=== PATIENT | male | born 1970 | race Two or more races ===

== ENCOUNTER 2020-04-08 02:17 | Inpatient (IN) | payer OTHER ==
[~2020-04-08] VITALS: Ht 172.7 cm; Wt 91.3 kg
[2020-04-08 03:30] LABS: Basophils # (auto) 0 10 ^3/uL (0-0.2); Basophils % (auto) 0.7 % (0.0-2.0); Eosinophils # (auto) 0 10 ^3/uL (0-0.8); Hematocrit 44.6 % (41.0-53.0); Hemoglobin 15.3 g/dL (13.5-17.5); Lymphocytes # (auto) 1.1 10 ^3/uL (0.4-5.4); Lymphocytes % (auto) 16.1 % (10.0-50.0); Mean Corpuscular Hemoglobin 29.2 pg (28.0-32.0); Mean Corpuscular Hgb Conc. 34.3 g/dL (32.0-36.0); Mean Corpuscular Volume 85.1 fL (80.0-100.0); Monocytes # (auto) 0.9 10 ^3/uL (0-1.3); Monocytes % (auto) 14.1 % (0.0-12.0); Neutrophils # (auto) 4.6 10 ^3/uL (1.6-8.6); Neutrophils % (auto) 69.1 % (37.0-80.0); Nucleated Red Blood Cells % 0.1 %; Platelet Count (auto) 153 10^3/uL (140-450); Red Blood Cells 5.25 10^6/uL (4.5-5.90); Red Cell Distribution Width 13.3 % (11.8-14.3); White Blood Cell 6.6 10^3/uL (4.4-10.8)
[2020-04-08 03:44] LABS: INR 1.02 (0.9-1.15); Partial Thromboplastin Time 30.5 sec (23.0-31.2)
[2020-04-08 03:47] LABS: Albumin 3.8 g/dL (3.4-5.0); BUN/Creatinine Ratio 15.4; Calcium 8.4 mg/dL (8.5-10.1); Potassium 3.6 mmol/L (3.5-5.1)
[2020-04-08 03:57] LABS: Bilirubin, Total 0.5 mg/dL (0.2-1.0); Total Protein 7.8 g/dL (6.4-8.2)
[2020-04-08] MEDS ORDERED: DexAMETHasone SOD PHOS 10MG/1ML VIAL INJ IV ONE (06:00)
[2020-04-08] MEDS ORDERED: DOXYCYCLINE 100MG/250ML 250 ML IV ONE (06:00)
[2020-04-08] MEDS ORDERED: TEMAZEPAM 15 MG CAP PO PRN (07:00)
[2020-04-08] MEDS ORDERED: ONDANSETRON HCL 4 MG/2 ML VIAL IV PRN (07:00)
[2020-04-08] MEDS ORDERED: LORazepam 0.5 MG TAB PO PRN (07:00)
[2020-04-08] MEDS ORDERED: ACETAMINOPHEN 500 MG TAB PO PRN (07:00)
[2020-04-08] MEDS ORDERED: ACETAMINOPHEN 325 MG TAB PO PRN (07:00)
[2020-04-08] MEDS ORDERED: DOCUSATE SOD 100 MG CAP PO PRN (07:00)
[2020-04-08] MEDS: DOXYCYCLINE 100 MG TAB/CAP PO SCH ×2 (09:04→21:33)
[2020-04-08] MEDS: SODIUM CHLORIDE 0.9% 1,000 ML IV SCH ×2 (09:52→23:52)
[2020-04-08] MEDS: ZINC SULFATE 220mg CAP or TAB PO SCH (09:53)
[2020-04-08] MEDS: ASCORBIC ACID 1,000 MG TAB PO SCH (09:53)
[2020-04-08] MEDS: ENOXAPARIN SOD 40 MG/0.4 ML SYRINGE SC SCH (09:54)
[2020-04-08] MEDS ORDERED: DexAMETHasone SOD PHOS 10MG/1ML VIAL INJ IV SCH (10:00)
[2020-04-08 13:21] VITALS: BP 108/70
[2020-04-08] MEDS: HYDROcodone-ACET 5/325MG TAB PO PRN ×4 (13:29→21:56)
[2020-04-08 14:02] LABS: Urine Bacteria NONE SEEN /hpf (None Seen); Urine Blood Negative /uL (Negative); Urine Mucus FEW (None Seen); Urine Specific Gravity 1.014 (1.001-1.035); Urine WBC 1 /hpf (0 - 3)
[2020-04-08] MEDS: ALBUTEROL SULF HFA 90MCG INH 200DOSE IN SCH ×2 (14:10→21:15)
[2020-04-08 14:12] LABS: Alcohol, Urine < 3.0 mg/dL (0-10); Amphetamine Screen, Urine NEGATIVE (NEGATIVE); Barbiturate Scree,Urine NEGATIVE (NEGATIVE); Benzodiazephine Screen, Urine NEGATIVE (NEGATIVE); Cannabinoid Screen, Urine NEGATIVE (NEGATIVE); Cocaine Screen, Urine NEGATIVE (NEGATIVE); Opiate Scree,Urine NEGATIVE (NEGATIVE); Phencyclidine Screen, Urine NEGATIVE (NEGATIVE)
--- NOTE | 2020-04-08 15:05 | NUR ---
Telemetry admit from ER KRISTEL ACOSTA admitted to Telemetry unit after SBAR received. Patient oriented to AL AUGUST, primary RN, unit, room, bed, and unit policies regarding patient care and visiting hours. Patient now on continuous telemetry monitoring, tele box # 13 and telemetry reading on arrival to unit is SR. Patient weighed by bedscale and encouraged to call if they need something. All questions and concerns addressed, patient verbalized understanding. Guard posted outside room.
[2020-04-08 17:21] VITALS: BP 132/84
--- NOTE | 2020-04-08 19:15 | NUR ---
OPENING SHIFT NOTE: Assumed care of patient. Patient is awake, alert, and oriented x 4. Patient is on RA with O2 saturations 98%. No s/s of respiratory distress, nausea, or vomiting. Respirations are regular and non-labored. Patient reports headache 4 out of 10 that is getting worse. will be addressed per Dr's order. Bed in lowest locked position with two side rails raised, call avery within reach. POC discussed with the patient. Instructed to call for assistance as needed. Will continue to monitor Q1 hr and PRN. Addendum: 04/08/20 at 2318 by GRECIA ORDONEZ RN RN Guard at the bed side.
[2020-04-08 20:00] VITALS: BP 142/93
[2020-04-08 20:54] LABS: CRP High Sensitivity 4.06 mg/dL (< 0.3)
[2020-04-08 22:00] VITALS: BP 142/93
[2020-04-09 05:00] VITALS: BP 125/69
[2020-04-09] MEDS: ALBUTEROL SULF HFA 90MCG INH 200DOSE IN SCH ×2 (06:14→14:28)
[2020-04-09 06:43] LABS: Basophils # (auto) 0 10 ^3/uL (0-0.2); Basophils % (auto) 0.1 % (0.0-2.0); Eosinophils # (auto) 0 10 ^3/uL (0-0.8); Hematocrit 44.2 % (41.0-53.0); Lymphocytes % (auto) 14.1 % (10.0-50.0); Mean Corpuscular Hemoglobin 29.2 pg (28.0-32.0); Monocytes # (auto) 0.9 10 ^3/uL (0-1.3); Monocytes % (auto) 13.2 % (0.0-12.0); Neutrophils # (auto) 5.1 10 ^3/uL (1.6-8.6); Neutrophils % (auto) 72.6 % (37.0-80.0); Platelet Count (auto) 162 10^3/uL (140-450); Red Blood Cells 5.14 10^6/uL (4.5-5.90); Red Cell Distribution Width 13.2 % (11.8-14.3)
[2020-04-09 07:22] LABS: Albumin 3.2 g/dL (3.4-5.0); Calcium 8.1 mg/dL (8.5-10.1); Potassium 4.2 mmol/L (3.5-5.1)
[2020-04-09 07:27] LABS: BUN/Creatinine Ratio 19.3; Bilirubin, Total 0.3 mg/dL (0.2-1.0); Total Protein 6.9 g/dL (6.4-8.2)
--- NOTE | 2020-04-09 08:09 | NUR ---
OPENING SHIFT NOTE Resumed care of patient. Patient is awake, and alert and oriented. No s/s of SOB or distress. Bed in lowest and locked position with side rails raised x2. Call avery within reach. Guard is rounding in hallway. Instructed on POC and encouraged to call for assistance, all questions and concerns addressed, patient verbalizes understanding. Will continue to monitor Q1 hr and PRN.
[2020-04-09 09:58] VITALS: BP 104/65
[2020-04-09] MEDS: ASCORBIC ACID 1,000 MG TAB PO SCH (10:03)
[2020-04-09] MEDS: DOXYCYCLINE 100 MG TAB/CAP PO SCH (10:03)
[2020-04-09] MEDS: ENOXAPARIN SOD 40 MG/0.4 ML SYRINGE SC SCH (10:03)
[2020-04-09] MEDS: ZINC SULFATE 220mg CAP or TAB PO SCH (10:03)
[2020-04-09 13:00] VITALS: BP 122/72
[2020-04-09] MEDS: HYDROcodone-ACET 5/325MG TAB PO PRN (14:15)
[2020-04-09] MEDS: SODIUM CHLORIDE 0.9% 1,000 ML IV SCH (16:12)
[2020-04-09 17:00] VITALS: BP 123/73
--- NOTE | 2020-04-09 17:37 | NUR ---
PT DISCHARGED. LEFT WITH GUARD. NO SOB OR SIGNS OF DISTRESS AT THIS TIME.
== END 2020-04-09 18:33 | DRG 179 ==
LOC: EEVIPCON 02:17 → ER 02:17 → EDBD 02:17 → TELE 02:18 → TELE-EAST 15:11
PROVIDERS: ADMIT Hospitalist; ATTEND Hospitalist
DX: U07.1 COVID-19 (principal); K21.9 Gastro-esophageal reflux disease without esophagitis; F41.9 Anxiety disorder, unspecified; I10 Essential (primary) hypertension; R73.9 Hyperglycemia, unspecified; E66.9 Obesity, unspecified; Z68.25 Body mass index [BMI] 25.0-25.9, adult
CPT/HCPCS: 36415; 71045; 80053; 80307; 81001; 82728; 83036; 83615; 83735; 83880; 84443; 85025; 85379; 85610; 85730; 86141; 87040; 87070; 87804; 87880; 94640; 96361; 96365; 96366; 96375; 96376; G0378; J1100; J2405; J3490

== ENCOUNTER 2020-04-13 02:17 | Inpatient (IN) | payer OTHER ==
[~2020-04-13] VITALS: Ht 175.3 cm; Wt 84.5 kg
[2020-04-13] MEDS ORDERED: DOXYCYCLINE 100MG/250ML 250 ML IV ONE (03:00)
[2020-04-13] MEDS ORDERED: DexAMETHasone SOD PHOS 10MG/1ML VIAL INJ IV ONE (03:00)
[2020-04-13] MEDS ORDERED: SODIUM CHLORIDE 0.9% 1,000 ML IV ONE (03:00)
[2020-04-13 03:12] LABS: Basophils # (auto) 0 10 ^3/uL (0-0.2); Basophils % (auto) 0.2 % (0.0-2.0); Eosinophils # (auto) 0 10 ^3/uL (0-0.8); Eosinophils % (auto) 0.1 % (0.0-7.0); Hematocrit 46.3 % (41.0-53.0); Lymphocytes # (auto) 0.4 10 ^3/uL (0.4-5.4); Lymphocytes % (auto) 7.3 % (10.0-50.0); Mean Corpuscular Hemoglobin 29.2 pg (28.0-32.0); Mean Corpuscular Hgb Conc. 34.6 g/dL (32.0-36.0); Mean Corpuscular Volume 84.5 fL (80.0-100.0); Monocytes # (auto) 0.6 10 ^3/uL (0-1.3); Monocytes % (auto) 10.3 % (0.0-12.0); Neutrophils # (auto) 4.7 10 ^3/uL (1.6-8.6); Neutrophils % (auto) 82.1 % (37.0-80.0); Platelet Count (auto) 235 10^3/uL (140-450); Red Blood Cells 5.47 10^6/uL (4.5-5.90); Red Cell Distribution Width 13.2 % (11.8-14.3); White Blood Cell 5.7 10^3/uL (4.4-10.8)
[2020-04-13 03:24] LABS: INR 1.05 (0.9-1.15); Partial Thromboplastin Time 31.2 sec (23.0-31.2)
[2020-04-13 03:29] LABS: Albumin 3.1 g/dL (3.4-5.0); Anion Gap 4 (5-15); Blood Urea Nitrogen 18 mg/dL (7-18); Calcium 8.1 mg/dL (8.5-10.1); Carbon Dioxide 29 mmol/L (21-32); Chloride 98 mmol/L (98-107); Glucose 145 mg/dL (74-106); Potassium 4.1 mmol/L (3.5-5.1); Sodium 131 mmol/L (136-145)
[2020-04-13 03:38] LABS: Alanine Aminotransferase 53 U/L (16-61); Alkaline Phosphatase 66 U/L (45-117); Aspartate Aminotransferase 57 U/L (15-37); BUN/Creatinine Ratio 14.3; Bilirubin, Total 0.6 mg/dL (0.2-1.0); GFR African American 79 mL/min; GFR Non-African American 65 mL/min; Total Protein 7.9 g/dL (6.4-8.2)
[2020-04-13] MEDS ORDERED: ONDANSETRON HCL 4 MG/2 ML VIAL IV PRN (07:15)
[2020-04-13] MEDS ORDERED: NITROGLYCERIN 0.4 MG SL TAB SL PRN (07:15)
[2020-04-13] MEDS ORDERED: MORPHINE SULF INJ 2 MG/ML SYRINGE 1ML IV PRN (07:15)
[2020-04-13 08:19] LABS: Magnesium 2.8 mg/dL (1.6-2.6)
[2020-04-13 08:29] LABS: CRP High Sensitivity 14.6 mg/dL (< 0.3)
[2020-04-13 08:47] LABS: Urine Bacteria FEW /hpf (None Seen); Urine Blood Negative /uL (Negative); Urine Specific Gravity 1.012 (1.001-1.035); Urine WBC 1 /hpf (0 - 3)
[2020-04-13 09:00] VITALS: BP 131/91
--- NOTE | 2020-04-13 09:43 | NUR ---
Telemetry admit from ER KRISTEL ACOSTA admitted to Telemetry unit after SBAR received Fidelia STORY. Patient oriented to Tamar Jaimes RN primary RN, unit, room, bed, and unit policies regarding patient care and visiting hours. Patient now on continuous telemetry monitoring, tele box #5 and telemetry reading on arrival to unit is Sinus Rhythm 73 bpm. Patient placed on bedside oxygen, weighed by bed scale and encouraged to call if they need something. All questions and concerns addressed, patient verbalized understanding.
[2020-04-13] MEDS ORDERED: ENOXAPARIN SOD 40 MG/0.4 ML SYRINGE SC SCH (10:00)
[2020-04-13] MEDS: ZINC SULFATE 220mg CAP or TAB PO SCH (10:40)
[2020-04-13] MEDS: ENOXAPARIN SOD 40 MG/0.4 ML SYRINGE SC SCH (10:40)
[2020-04-13] MEDS: DOXYCYCLINE 100MG/250ML 250 ML IV SCH ×2 (10:40→21:38)
[2020-04-13] MEDS: FAMOTIDINE 20 MG TAB PO SCH ×2 (10:40→21:38)
[2020-04-13] MEDS: CHOLECALCIFEROL (VITD3) 2,000 UNIT CAP PO SCH (10:41)
[2020-04-13] MEDS: DexAMETHasone SOD PHOS 10MG/1ML VIAL INJ IV SCH (10:41)
[2020-04-13] MEDS: ASCORBIC ACID 1,000 MG TAB PO SCH (10:41)
--- NOTE | 2020-04-13 11:25 | NUR ---
SPOKE WITH DR. AMADOR INFORMED PATIENT DOES NOT HAVE A DIET AND WAS NOT SWAB FOR COVID, BUT WAS POSITIVE ON LAST ADMISSION. ORDERED REGULAR DIET, COVID SWAB, PLASMA, AND REMDESIVIR. PER MD AMADOR SHE WILL SPEAK WITH PATIENT SOON FOR INFORMED CONSENT.
--- NOTE | 2020-04-13 11:35 | NUR ---
NAFSIA AMADOR FOR DIET ORDER AND COVID SWAB. AWAITING CALL BACK
[2020-04-13 12:00] VITALS: BP 130/87
[2020-04-13 13:52] VITALS: BP 120/76
--- NOTE | 2020-04-13 13:58 | NUR ---
CLOSING SHIFT NOTE ENDORSE CARE TO RELIEF PORSHA ROSARIO. PATIENT HAS NO S/S OF DISTRESS/SOB OR PAIN AT THIS TIME.
[2020-04-13] MEDS ORDERED: guaiFENesin-DM 100/10mg/5ml SYR PO PRN (14:30)
[2020-04-13] MEDS: ALBUTEROL SULF HFA 90MCG INH 200DOSE IN SCH ×2 (14:50→22:21)
[2020-04-13 17:00] VITALS: BP 145/90
[2020-04-13] MEDS ORDERED: REMDESIVIR 200 MG in NS 210ml LOADING DOSE ADULT IV ONE (17:00)
--- NOTE | 2020-04-13 19:10 | NUR ---
Opening Shift Note Received report from radha Rossi RN. Assumed care of patient, awake and alert. No S/S of distress/SOB or pain. Instructed on POC and to call for assist PRN, will continue to monitor for changes Q1hr and PRN.
[2020-04-13 20:00] VITALS: BP 146/93
[2020-04-13] MEDS: ACETAMINOPHEN 325 MG TAB PO PRN (21:38)
--- NOTE | 2020-04-13 21:38 | NUR ---
Given tylenol for headache of 3/10. will monitor
[2020-04-13 22:01] VITALS: BP 146/93
[2020-04-14] VITALS (7 sets, daily range): BP systolic 128–135; BP diastolic 75–98
--- NOTE | 2020-04-14 05:21 | NUR ---
Patient is resting in bed with eyes closed, no distress noted and patient denies pain. Patient is saturating at 94% on 4LNC.
[2020-04-14] MEDS: ALBUTEROL SULF HFA 90MCG INH 200DOSE IN SCH ×3 (06:53→21:19)
--- NOTE | 2020-04-14 07:00 | NUR ---
OPENING SHIFT NOTE ASSUMED CARE OF PATIENT FROM SHADE CLOTH FINISHER RN TAE. PATIENT IS AWAKE, ALERT, AND ORIENTED X4. PATIENT HAS NO S/S OF DISTRESS/SOB OR PAIN. INSTRUCTED PATIENT ON POC, PATIENT VERBALIZED UNDERSTANDING. BED IS IN LOWEST POSITION WITH SIDE RAILS RAISED X2, BED WHEELS LOCKED, AND CALL LIGHT IS WITHIN REACH. WILL CONTINUE TO MONITOR.
[2020-04-14 07:23] LABS: Basophils # (auto) 0 10 ^3/uL (0-0.2); Basophils % (auto) 0.1 % (0.0-2.0); Eosinophils # (auto) 0 10 ^3/uL (0-0.8); Hematocrit 44.6 % (41.0-53.0); Hemoglobin 14.7 g/dL (13.5-17.5); Lymphocytes # (auto) 0.8 10 ^3/uL (0.4-5.4); Lymphocytes % (auto) 9.6 % (10.0-50.0); Mean Corpuscular Hemoglobin 28.4 pg (28.0-32.0); Mean Corpuscular Volume 86.2 fL (80.0-100.0); Monocytes # (auto) 0.8 10 ^3/uL (0-1.3); Monocytes % (auto) 9.2 % (0.0-12.0); Neutrophils # (auto) 6.6 10 ^3/uL (1.6-8.6); Neutrophils % (auto) 81.1 % (37.0-80.0); Nucleated Red Blood Cells % 0.1 %; Platelet Count (auto) 261 10^3/uL (140-450); Red Blood Cells 5.18 10^6/uL (4.5-5.90); Red Cell Distribution Width 13.2 % (11.8-14.3); White Blood Cell 8.2 10^3/uL (4.4-10.8)
[2020-04-14 07:51] LABS: Albumin 2.5 g/dL (3.4-5.0); BUN/Creatinine Ratio 24.1; Calcium 8.3 mg/dL (8.5-10.1); Potassium 4.6 mmol/L (3.5-5.1)
[2020-04-14 08:04] LABS: Bilirubin, Total 0.4 mg/dL (0.2-1.0); Total Protein 7.1 g/dL (6.4-8.2)
[2020-04-14] MEDS: DOXYCYCLINE 100MG/250ML 250 ML IV SCH ×2 (10:22→21:46)
[2020-04-14] MEDS: ZINC SULFATE 220mg CAP or TAB PO SCH (10:23)
[2020-04-14] MEDS: ASCORBIC ACID 1,000 MG TAB PO SCH (10:24)
[2020-04-14] MEDS: FAMOTIDINE 20 MG TAB PO SCH ×2 (10:24→21:46)
[2020-04-14] MEDS: CHOLECALCIFEROL (VITD3) 2,000 UNIT CAP PO SCH (10:24)
[2020-04-14] MEDS: ENOXAPARIN SOD 40 MG/0.4 ML SYRINGE SC SCH (10:25)
[2020-04-14] MEDS: DexAMETHasone SOD PHOS 10MG/1ML VIAL INJ IV SCH (10:25)
--- NOTE | 2020-04-14 16:58 | NUR ---
PRE ADMINISTRATION VITALS OF REMDESIVIR 135/91 mmHg AND HR 89 BPM.
[2020-04-14] MEDS: REMDESIVIR 100mg in NS 230ml DAILYx4DAYS (NO VENT) IV SCH (17:03)
--- NOTE | 2020-04-14 17:18 | NUR ---
REMDESIVIR 15 MINUTE VITAL SIGNS 134/86 mmHg HR 82 bpm
--- NOTE | 2020-04-14 18:58 | NUR ---
POST REMDESIVIR VITALS BP 134/97mmHg, HR 90 BPM.
--- NOTE | 2020-04-14 19:01 | NUR ---
CLOSING SHIFT NOTE PATIENT HAS NO S/S OF DISTRESS/SOB OR PAIN AT THIS TIME. WILL ENDORSE CARE TO CRUISE GUIDE RN.
--- NOTE | 2020-04-14 19:30 | NUR ---
OPENING SHIFT NOTE Assumed care of patient who is A&O x4. Currently on 3L NC; spo2 is 95%. with c/o Dry cough noted and patient reports SOB on exertion. Breathe sounds are diminished throughout. Patient denies pain at this time. PIV in left AC is intact and patent. Flushed with 10ml NS. Patient is ambulatory without the use of assistive devices at baseline. POC discussed and patient verbalizes understanding. Patient is restrained to bed at left wrist and bilateral ankles. information management officer present outside of room for safety. Bed is in low locked position with side rails up x2. Call light is within reach and patient encouraged to call for assistance when needed. Will continue to monitor for changes PRN.
--- NOTE | 2020-04-14 21:08 | NUR ---
Patient provided 50ft nasal cannula due to SOB with exertion and desaturation when ambulating to the restroom. Patient instructed to call for assistance when needing to get OOB. Verbalizes understanding.
[2020-04-15] VITALS (8 sets, daily range): BP systolic 126–145; BP diastolic 82–102
[2020-04-15] MEDS: ALBUTEROL SULF HFA 90MCG INH 200DOSE IN SCH ×3 (06:46→22:27)
--- NOTE | 2020-04-15 07:05 | NUR ---
OPENING SHIFT NOTE ASSUMED CARE OF PATIENT FROM PHOTO MACHINE OPERATOR RN NARESH. PATIENT IS AWAKE, ALERT, AND ORIENTED X4. PATIENT HAS NO S/S OF DISTRESS/SOB OR PAIN. INSTRUCTED PATIENT ON POC, PATIENT VERBALIZED UNDERSTANDING. BED IS IN LOWEST POSITION WITH SIDE RAILS RAISED X2, HANDCUFFS APPLIED TO BILATERAL WRISTS AND TO RIGHT ANKLE, GUARD OUTSIDE OF ROOM, BED WHEELS LOCKED, AND CALL LIGHT IS WITHIN REACH. WILL CONTINUE TO MONITOR.
[2020-04-15] MEDS: ASCORBIC ACID 1,000 MG TAB PO SCH (10:17)
[2020-04-15] MEDS: DOXYCYCLINE 100MG/250ML 250 ML IV SCH ×2 (10:17→22:00)
[2020-04-15] MEDS: ENOXAPARIN SOD 40 MG/0.4 ML SYRINGE SC SCH (10:18)
[2020-04-15] MEDS: FAMOTIDINE 20 MG TAB PO SCH ×2 (10:18→22:39)
[2020-04-15] MEDS: DexAMETHasone SOD PHOS 10MG/1ML VIAL INJ IV SCH (10:19)
[2020-04-15] MEDS: ZINC SULFATE 220mg CAP or TAB PO SCH (10:19)
[2020-04-15] MEDS: CHOLECALCIFEROL (VITD3) 2,000 UNIT CAP PO SCH (10:19)
[2020-04-15] MEDS: FUROSEMIDE 40 MG TAB PO SCH (10:26)
--- NOTE | 2020-04-15 17:46 | NUR ---
PRE REMDESIVIR VITALS BP 142/98 mmHg AND HEART RAT 82 BPM. WILL CONTINUE TO MONITOR.
[2020-04-15] MEDS: REMDESIVIR 100mg in NS 230ml DAILYx4DAYS (NO VENT) IV SCH (17:50)
--- NOTE | 2020-04-15 18:05 | NUR ---
15 MINUTE VITALS FOR REMDESIVIR INFUSION BP 134/88 mmHg AND HR IS 89 BPM
--- NOTE | 2020-04-15 18:50 | NUR ---
CLOSING SHIFT NOTE PATIENT HAS NO S/S OF DISTRESS/SOB OR PAIN AT THIS TIME. WILL ENDORSE CARE TO GEOSPATIAL TECHNICIAN RN.
--- NOTE | 2020-04-15 20:31 | NUR ---
POST REMDESIVIR VITALS BP: 135/86 HR: 81
--- NOTE | 2020-04-15 22:56 | NUR ---
[facility] pre transfusion vitals: Temp: 98.4 P: 83 RR: 22 BP: 145/90 Spo2: 91% on 2L NC Verified by two RNs and transfusion started. Addendum: 04/15/20 at 2302 by VANESA NAVARRETE RN RN Correct time should be 2206
--- NOTE | 2020-04-15 23:09 | NUR ---
TRANSFUSION COMPLETE Patient denies any adverse effects. V/S obtained. See Transfusion documentation.
[2020-04-16] VITALS (8 sets, daily range): BP systolic 125–139; BP diastolic 76–89
--- NOTE | 2020-04-16 00:07 | NUR ---
POST TRANSFUSION VITALS Temp: 98.6, HR: 74, RR: 20, BP: 134/85 Spo2: 94% on 3L
[2020-04-16 05:44] LABS: Basophils # (auto) 0 10 ^3/uL (0-0.2); Basophils % (auto) 0.2 % (0.0-2.0); Eosinophils # (auto) 0 10 ^3/uL (0-0.8); Hematocrit 41.7 % (41.0-53.0); Hemoglobin 14.3 g/dL (13.5-17.5); Lymphocytes % (auto) 14.2 % (10.0-50.0); Mean Corpuscular Hemoglobin 29.3 pg (28.0-32.0); Mean Corpuscular Hgb Conc. 34.2 g/dL (32.0-36.0); Mean Corpuscular Volume 85.5 fL (80.0-100.0); Monocytes # (auto) 0.7 10 ^3/uL (0-1.3); Monocytes % (auto) 9.3 % (0.0-12.0); Neutrophils # (auto) 5.6 10 ^3/uL (1.6-8.6); Neutrophils % (auto) 76.3 % (37.0-80.0); Platelet Count (auto) 360 10^3/uL (140-450); Red Blood Cells 4.88 10^6/uL (4.5-5.90); Red Cell Distribution Width 13.1 % (11.8-14.3); White Blood Cell 7.3 10^3/uL (4.4-10.8)
[2020-04-16] MEDS: ALBUTEROL SULF HFA 90MCG INH 200DOSE IN SCH ×3 (06:23→22:41)
[2020-04-16 06:25] LABS: Albumin 2.7 g/dL (3.4-5.0); Calcium 8.5 mg/dL (8.5-10.1)
[2020-04-16 06:27] LABS: BUN/Creatinine Ratio 28.8
[2020-04-16 06:29] LABS: Bilirubin, Total 0.4 mg/dL (0.2-1.0); Total Protein 6.8 g/dL (6.4-8.2)
--- NOTE | 2020-04-16 07:20 | NUR ---
OPENING SHIFT NOTE ASSUMED CARE OF PATIENT FROM MANAGER CRISIS RN NARESH. PATIENT IS AWAKE, ALERT, AND ORIENTED X4. PATIENT HAS NO S/S OF DISTRESS/SOB OR PAIN. INSTRUCTED PATIENT ON POC, PATIENT VERBALIZED UNDERSTANDING. BED IS IN LOWEST POSITION WITH SIDE RAILS RAISED X2, HANDCUFFS APPLIED TO BILATERAL WRISTS AND TO RIGHT ANKLE, GUARD OUTSIDE OF ROOM, BED WHEELS LOCKED, AND CALL LIGHT IS WITHIN REACH. WILL CONTINUE TO MONITOR.
[2020-04-16] MEDS: FAMOTIDINE 20 MG TAB PO SCH ×2 (10:10→21:22)
[2020-04-16] MEDS: CHOLECALCIFEROL (VITD3) 2,000 UNIT CAP PO SCH (10:10)
[2020-04-16] MEDS: ZINC SULFATE 220mg CAP or TAB PO SCH (10:10)
[2020-04-16] MEDS: ASCORBIC ACID 1,000 MG TAB PO SCH (10:10)
[2020-04-16] MEDS: ENOXAPARIN SOD 40 MG/0.4 ML SYRINGE SC SCH (10:11)
[2020-04-16] MEDS: DexAMETHasone SOD PHOS 10MG/1ML VIAL INJ IV SCH (10:11)
[2020-04-16] MEDS: DOXYCYCLINE 100MG/250ML 250 ML IV SCH ×2 (10:11→21:22)
[2020-04-16] MEDS: FUROSEMIDE 40 MG TAB PO SCH (10:11)
--- NOTE | 2020-04-16 11:23 | NUR ---
Nutrition Assessment Notes Please refer to link for full assessment notes. Est Energy needs: 6464-0258 kcals (23-25 kcal/kgBW) Est Protein needs: 69-86 gms/day (0.8-1.0 gm/kgBW) Will continue to monitor and reassess prn. Addendum: 04/16/20 at [address] Amended: Links added.
[2020-04-16] MEDS: REMDESIVIR 100mg in NS 230ml DAILYx4DAYS (NO VENT) IV SCH (17:04)
--- NOTE | 2020-04-16 17:04 | NUR ---
PRE REMDESIVIR VITALS BP 144/82 mmHg AND HR 88 BPM. WILL CONTINUE TO MONITOR.
--- NOTE | 2020-04-16 17:19 | NUR ---
15 MINUTE INFUSION REMDESIVIR VITALS BP 146/75 mmHg AND HEART IS 77 BPM. WILL CONTINUE TO MONITOR.
--- NOTE | 2020-04-16 18:23 | NUR ---
POST REMDISIVIR VITALS 142/91 mmHg, HR IS 84 BPM.
--- NOTE | 2020-04-16 19:04 | NUR ---
CLOSING SHIFT NOTE PATIENT HAS NO S/S OF DISTRESS/SOB OR PAIN. ENDORSED CARE TO AUTOMATIC MOUNTER PORSHA INFANTE.
--- NOTE | 2020-04-16 19:20 | NUR ---
OPENING SHIFT NOTE Assumed care of patient who is A&O x4. Currently on 4L NC. Reports SOB on exertion and dry cough with deep inhalation. denies pain at this time. PIV in right forearm is intact and patent. Flushed with 10ml NS. POC discussed and patient verbalizes understanding. Bed is in low locked position with side rails up x2. Left wrist is handcuffed to bed. [facility] deputy outside of room for security. call light is within reach and patient encouraged to call for assistance when needed. Will continue to monitor for changes PRN.
--- NOTE | 2020-04-16 22:00 | NUR ---
Patient ambulated to the restroom on 4L NC. Pulled assistance cord due to SOB and inability to ambulate back to bed independently. Upon entering the restroom, patient is coughing extensively and respirations are labored. Instructed patient to sit back down onto toilet and take deep slow breaths through his nose. O2 increased to 6LPM and patient instructed to remain seated until he recovered. Once patient's breathing returned to normal and coughing ceased, he was assisted by this RN and [facility]'s deputy back into bed. patient handcuffed to bed at left wrist. Will continue to monitor.
[2020-04-16] MEDS: ACETAMINOPHEN 325 MG TAB PO PRN (22:44)
--- NOTE | 2020-04-16 22:45 | NUR ---
Patient educated on self proning. [place] ensured shackles are long enough for patient to turn in bed. Patient declines to lie prone at this time, however verbalizes understanding of the importance to enhance oxygenation and move secretions. Will continue to encouraged patient to lay prone as tolerated.
--- NOTE | 2020-04-16 22:46 | NUR ---
O2 reduced back to 4LPM now that patient is resting comfortably in bed and respirations are even and non labored. Vital signs obtained. Spo2 on 4L is 93%. Patient reports mild headache and requests cough syrup. Will medicate with Acetaminophen 650mg and Guaifenesin 20mg as ordered. Will continue to monitor for changes PRN.
[2020-04-17 05:00] VITALS: BP 121/73
[2020-04-17] MEDS: ALBUTEROL SULF HFA 90MCG INH 200DOSE IN SCH ×3 (06:32→21:53)
--- NOTE | 2020-04-17 07:10 | NUR ---
OPENING SHIFT NOTE ASSUMED CARE OF PATIENT FROM PREVOCATIONAL/REHABILITATION COUNSELOR RN NARESH. PATIENT IS AWAKE, ALERT, AND ORIENTED X4. PATIENT HAS NO S/S OF DISTRESS/SOB OR PAIN. INSTRUCTED PATIENT ON POC, PATIENT VERBALIZED UNDERSTANDING. BED IS IN LOWEST POSITION WITH SIDE RAILS RAISED X2, HANDCUFFS APPLIED TO BILATERAL WRISTS AND TO RIGHT ANKLE, GUARD OUTSIDE OF ROOM, BED WHEELS LOCKED, AND CALL LIGHT IS WITHIN REACH. WILL CONTINUE TO MONITOR.
[2020-04-17 07:38] LABS: Hematocrit 45.4 % (41.0-53.0); Mean Corpuscular Hemoglobin 28.4 pg (28.0-32.0); Mean Corpuscular Hgb Conc. 33.1 g/dL (32.0-36.0); Mean Corpuscular Volume 85.7 fL (80.0-100.0); Platelet Count (auto) 399 10^3/uL (140-450); Red Cell Distribution Width 13.1 % (11.8-14.3)
[2020-04-17 07:47] VITALS: BP 136/78
[2020-04-17 07:51] LABS: Basophils % (manual) 0 (0.0-2.0); Blast Cells 0; Eosinophils % (manual) 0 (0-7); Metamyelocytes % 0; Myelocytes % 0; Promyelocytes % 0; Reactive Lymphocytes 0
[2020-04-17 07:59] LABS: Albumin 2.8 g/dL (3.4-5.0); BUN/Creatinine Ratio 26.4; Bilirubin, Total 0.5 mg/dL (0.2-1.0); Calcium 8.4 mg/dL (8.5-10.1); Potassium 4.1 mmol/L (3.5-5.1); Total Protein 7.2 g/dL (6.4-8.2)
[2020-04-17 08:07] LABS: Band Neutrophils % (manual) 3; Lymphocytes % (manual) 17 (10.0-50.0); Monocytes % (manual) 8 (0-12)
[2020-04-17 09:00] VITALS: BP 136/78
[2020-04-17] MEDS: DexAMETHasone SOD PHOS 10MG/1ML VIAL INJ IV SCH (10:24)
[2020-04-17] MEDS: ENOXAPARIN SOD 40 MG/0.4 ML SYRINGE SC SCH (10:24)
[2020-04-17] MEDS: FAMOTIDINE 20 MG TAB PO SCH ×2 (10:25→21:53)
[2020-04-17] MEDS: ASCORBIC ACID 1,000 MG TAB PO SCH (10:25)
[2020-04-17] MEDS: CHOLECALCIFEROL (VITD3) 2,000 UNIT CAP PO SCH (10:25)
[2020-04-17] MEDS: DOXYCYCLINE 100MG/250ML 250 ML IV SCH ×2 (10:25→21:54)
[2020-04-17] MEDS: ZINC SULFATE 220mg CAP or TAB PO SCH (10:25)
[2020-04-17] MEDS: FUROSEMIDE 40 MG TAB PO SCH (10:25)
[2020-04-17] MEDS: ACETAMINOPHEN 325 MG TAB PO PRN ×2 (10:33→18:00)
[2020-04-17 13:00] VITALS: BP 140/83
[2020-04-17 16:57] VITALS: BP 128/81
--- NOTE | 2020-04-17 17:28 | NUR ---
PRE INFUSION VITALS FOR REMDESIVIR BP 121/94 mmHg AND HEART RATE 85 BPM
[2020-04-17] MEDS: REMDESIVIR 100mg in NS 230ml DAILYx4DAYS (NO VENT) IV SCH (17:29)
--- NOTE | 2020-04-17 17:45 | NUR ---
REMDESIVIR 15 MINUTE INFUSION VITALS BP 139/93 mmHg AND HEART RATE 79 BPM
--- NOTE | 2020-04-17 18:28 | NUR ---
POST REMDESIVIR VITALS BP136/85 mmHg AND HEART 95 BPM
--- NOTE | 2020-04-17 18:59 | NUR ---
CLOSING SHIFT NOTE ENDORSED CARE TO STIPPLER RN. PATIENT HAS NO S/S OF DISTRESS/SOB OR PAIN AT THIS TIME.
[2020-04-17] MEDS: TEMAZEPAM 15 MG CAP PO PRN (21:53)
[2020-04-17 21:59] VITALS: BP 121/84
[2020-04-18 05:00] VITALS: BP 126/86
--- NOTE | 2020-04-18 07:19 | NUR ---
CLOSING SHIFT NOTE ENDORSED CARE TO DAY SHIFT RN. PATIENT HAS NO S/S OF DISTRESS/SOB OR PAIN AT THIS TIME
[2020-04-18] MEDS: ALBUTEROL SULF HFA 90MCG INH 200DOSE IN SCH ×3 (08:09→22:17)
[2020-04-18 08:41] VITALS: BP 128/90
[2020-04-18] MEDS ORDERED: guaiFENesin-DM 100/10mg/5ml SYR PO PRN (10:00)
--- NOTE | 2020-04-18 10:02 | NUR ---
ON ROOM AIR FOR 10 MINUTES OXYGEN SATURATION TO 86% PLACED BACK ON 2 LITER SATURATION AT 92% PAGED DR AMADOR TO NOTIFY HER.
[2020-04-18] MEDS: DexAMETHasone SOD PHOS 10MG/1ML VIAL INJ IV SCH (12:06)
[2020-04-18] MEDS: ASCORBIC ACID 1,000 MG TAB PO SCH (12:07)
[2020-04-18] MEDS: ENOXAPARIN SOD 40 MG/0.4 ML SYRINGE SC SCH (12:07)
[2020-04-18] MEDS: CHOLECALCIFEROL (VITD3) 2,000 UNIT CAP PO SCH (12:07)
[2020-04-18] MEDS: FAMOTIDINE 20 MG TAB PO SCH ×2 (12:07→21:51)
[2020-04-18] MEDS: ZINC SULFATE 220mg CAP or TAB PO SCH (12:07)
[2020-04-18] MEDS: FUROSEMIDE 40 MG TAB PO SCH (12:09)
[2020-04-18 13:00] VITALS: BP 122/79
[2020-04-18 17:00] VITALS: BP 123/88
[2020-04-18] MEDS: TEMAZEPAM 15 MG CAP PO PRN (21:51)
[2020-04-18] MEDS: ACETAMINOPHEN 325 MG TAB PO PRN (21:52)
[2020-04-18 22:00] VITALS: BP 139/97
[2020-04-19 05:00] VITALS: BP 134/87
[2020-04-19] MEDS: ALBUTEROL SULF HFA 90MCG INH 200DOSE IN SCH ×3 (06:22→21:57)
--- NOTE | 2020-04-19 06:56 | NUR ---
CLOSING SHIFT NOTE WILL ENDORSED CARE TO DAY SHIFT RN. PATIENT HAS NO S/S OF DISTRESS/SOB OR PAIN AT THIS TIME
[2020-04-19 08:48] VITALS: BP 130/92
[2020-04-19] MEDS: DexAMETHasone SOD PHOS 10MG/1ML VIAL INJ IV SCH (10:26)
[2020-04-19] MEDS: ZINC SULFATE 220mg CAP or TAB PO SCH (10:27)
[2020-04-19] MEDS: ASCORBIC ACID 1,000 MG TAB PO SCH (10:27)
[2020-04-19] MEDS: FUROSEMIDE 40 MG TAB PO SCH ×2 (10:27→22:16)
[2020-04-19] MEDS: FAMOTIDINE 20 MG TAB PO SCH ×2 (10:27→22:14)
[2020-04-19] MEDS: ENOXAPARIN SOD 40 MG/0.4 ML SYRINGE SC SCH (10:30)
[2020-04-19] MEDS: CHOLECALCIFEROL (VITD3) 2,000 UNIT CAP PO SCH (10:30)
[2020-04-19 10:35] VITALS: BP 130/92
--- NOTE | 2020-04-19 11:25 | NUR ---
Nutrition Followup Notes Wt: 83.7 kg Pt is COVID positive. Pt is currently on regular diet with adequate PO of 100% x 4 per RN doc. pt with no distress noted Est Energy needs: 7975-8153 kcals (23-25 kcal/kgBW), Est Protein needs: 69-86 gms/day (0.8-1.0 gm/kgBW). Will continue to monitor and reassess prn. Labs: ALB 2.8 L, GLU 128 H CA 8.4 L, BUN 24 H BM: Pt had 1 BM yesterday per RN note. Skin: BS 21 low risk, full details in primary care provider note. PES: Altered nutrition related lab values current/chronic medical condition aeb hypokalemia, elev BUN hypocalcemia, mod hypoalb Comments: Will continue to monitor po intake, skin status, pertinent labs and weight trends. F/u high 3-5 days 1) Continue current plan of care
[2020-04-19 12:57] VITALS: BP 130/89
[2020-04-19 16:46] VITALS: BP 137/79
[2020-04-19 22:04] LABS: Urine WBC None Seen /hpf (0 - 3)
[2020-04-19] MEDS: POTASSIUM CHL 10 Meq TABLET PO SCH (22:15)
[2020-04-19] MEDS: TEMAZEPAM 15 MG CAP PO PRN (22:15)
[2020-04-19] MEDS: ACETAMINOPHEN 325 MG TAB PO PRN (22:15)
[2020-04-19 22:32] LABS: Urine Bacteria NONE SEEN /hpf (None Seen); Urine Blood Negative /uL (Negative); Urine Specific Gravity 1.027 (1.001-1.035)
[2020-04-19 22:50] VITALS: BP 148/91
[2020-04-20 05:26] VITALS: BP 130/89
[2020-04-20] MEDS: ALBUTEROL SULF HFA 90MCG INH 200DOSE IN SCH ×3 (06:16→21:19)
[2020-04-20 06:29] LABS: Albumin 2.9 g/dL (3.4-5.0); Calcium 8.5 mg/dL (8.5-10.1); Mean Corpuscular Hgb Conc. 33.9 g/dL (32.0-36.0); Mean Corpuscular Volume 85.4 fL (80.0-100.0); Potassium 3.9 mmol/L (3.5-5.1); Red Cell Distribution Width 13.1 % (11.8-14.3); White Blood Cell 8.4 10^3/uL (4.4-10.8)
[2020-04-20 06:30] LABS: Hemoglobin 15.6 g/dL (13.5-17.5); Platelet Count (auto) 547 10^3/uL (140-450); Red Blood Cells 5.39 10^6/uL (4.5-5.90)
[2020-04-20 06:31] LABS: Basophils % (manual) 0 (0.0-2.0); Blast Cells 0; Eosinophils % (manual) 0 (0-7); Metamyelocytes % 0; Myelocytes % 0; Promyelocytes % 0; Reactive Lymphocytes 0
[2020-04-20 06:34] LABS: BUN/Creatinine Ratio 29.9; Bilirubin, Total 0.4 mg/dL (0.2-1.0); Total Protein 7.2 g/dL (6.4-8.2)
--- NOTE | 2020-04-20 06:54 | NUR ---
CLOSING SHIFT NOTE WILL ENDORSED CARE TO DAY SHIFT RN. PATIENT HAS NO S/S OF DISTRESS/SOB OR PAIN AT THIS TIME
--- NOTE | 2020-04-20 07:20 | NUR ---
OPENING NOTE ASSUMED CARE OF PT. ALERT AND ORIENTED. NO S/S OF SOB/DISTRESS NOTED. BED SET TO LOWEST POSITION/LOCKED. BEDSIDE RAILS UP X2. CALL LIGHT WITHIN REACH. INSTRUCTED PT TO CALL FOR ASSISTANCE. UPDATED ON POC. PT VERBALIZED UNDERSTANDING. WILL CONTINUE TO MONITOR Q1HR AND PRN.
[2020-04-20 07:44] LABS: Band Neutrophils % (manual) 3; Lymphocytes % (manual) 14 (10.0-50.0); Monocytes % (manual) 7 (0-12)
[2020-04-20 09:00] VITALS: BP 123/87
[2020-04-20] MEDS: ZINC SULFATE 220mg CAP or TAB PO SCH (09:09)
[2020-04-20] MEDS: DexAMETHasone 4 MG TAB PO SCH (09:10)
[2020-04-20] MEDS: POTASSIUM CHL 10 Meq TABLET PO SCH (09:10)
[2020-04-20] MEDS: ASCORBIC ACID 1,000 MG TAB PO SCH (09:11)
[2020-04-20] MEDS: FAMOTIDINE 20 MG TAB PO SCH ×2 (09:11→23:02)
[2020-04-20] MEDS: CHOLECALCIFEROL (VITD3) 2,000 UNIT CAP PO SCH (09:11)
[2020-04-20] MEDS: FUROSEMIDE 40 MG TAB PO SCH (09:11)
[2020-04-20] MEDS: ENOXAPARIN SOD 40 MG/0.4 ML SYRINGE SC SCH (09:12)
[2020-04-20 13:00] VITALS: BP 129/79
[2020-04-20 16:52] VITALS: BP 131/93
--- NOTE | 2020-04-20 19:30 | NUR ---
opening note pt is watching tv. semi fowlers position with HOB at 30 degrees. respirations even and nonlabored on 2Lnc. POC discussed, pt verbalized understanding. pt is inmate. federal guard position outside of room. pt denies pain or discomfort at this time. bed in low locked position, call light within reach.
[2020-04-20 22:00] VITALS: BP 142/96
--- NOTE | 2020-04-20 22:30 | NUR ---
IV at right forearm leaking. IV discontinued at this time. catheter remained fully intact upon removal.
--- NOTE | 2020-04-20 22:35 | NUR ---
New IV placed at left forearm, 20g 1 attempt. pt tolerated insertion well.
[2020-04-20] MEDS: TEMAZEPAM 15 MG CAP PO PRN (23:02)
[2020-04-21 05:00] VITALS: BP 132/86
[2020-04-21] MEDS: ALBUTEROL SULF HFA 90MCG INH 200DOSE IN SCH ×2 (06:17→13:52)
--- NOTE | 2020-04-21 07:18 | NUR ---
pt resting in right lateral position with eyes closed. pt on 1Lnc. No s/s of pain or distress. endorsed care to day shift rn Adriana.
[2020-04-21 09:00] VITALS: BP 128/89
--- NOTE | 2020-04-21 09:16 | NUR ---
ASSISTED NURSE PRODUCT INFO SPECIALIST RECEIVED CALL FROM WILLIAMS (NURSE PRODUCT INFO SPECIALIST). REQUESTING UPDATE. PASSWORD PROVIDED. UPDATE WAS PROVIDED BY THIS NURSE.
[2020-04-21] MEDS: ZINC SULFATE 220mg CAP or TAB PO SCH (09:36)
[2020-04-21] MEDS: DexAMETHasone 4 MG TAB PO SCH (09:37)
[2020-04-21] MEDS: ENOXAPARIN SOD 40 MG/0.4 ML SYRINGE SC SCH (09:38)
[2020-04-21] MEDS: CHOLECALCIFEROL (VITD3) 2,000 UNIT CAP PO SCH (09:38)
[2020-04-21] MEDS: ASCORBIC ACID 1,000 MG TAB PO SCH (09:38)
[2020-04-21] MEDS: FAMOTIDINE 20 MG TAB PO SCH (09:38)
[2020-04-21] MEDS ORDERED: FUROSEMIDE 20 MG TAB PO SCH (10:00)
[2020-04-21] MEDS ORDERED: POTASSIUM CHL 10 Meq TABLET PO SCH ×2 (10:00)
[2020-04-21] MEDS ORDERED: FUROSEMIDE 40 MG/4 ML VIAL IV SCH (10:00)
--- NOTE | 2020-04-21 10:45 | NUR ---
O2 SATURATION ON ROOM AIR PATIENT WALKED AROUND THE NURSE STATION ON ROOM AIR WITH THIS NURSE. PATIENT O2 SATURATION 93%-94%. WILL INFORM .
--- NOTE | 2020-04-21 10:45 | NUR ---
Respiratory note: UNABLE TO DRAW ABG. PATIENT WALKED AROUND THE RN STATION BY RN ON ROOM AIR. PATIENT O2 SATURATION 93%-94%. WILL INFORM MD.
[2020-04-21] MEDS ORDERED: ASPI81CH43 PO (11:27)
[2020-04-21] MEDS ORDERED: FURO40TA4 PO (11:27)
[2020-04-21] MEDS ORDERED: POTA-167 PO (11:27)
[2020-04-21] MEDS ORDERED: ASCO10003 PO (11:27)
[2020-04-21] MEDS ORDERED: ALBUAER3 IN (11:27)
[2020-04-21] MEDS ORDERED: CHOL1CAP47 PO (11:27)
[2020-04-21] MEDS ORDERED: METH4PAK PO (11:28)
[2020-04-21] MEDS ORDERED: ZINC220T6 PO (11:28)
[2020-04-21 13:00] VITALS: BP 138/70
[2020-04-21 13:18] VITALS: BP 128/89
--- NOTE | 2020-04-21 13:51 | NUR ---
[facility] SPOKE TO [facility] CHARGE NURSE PORSHA MALIK. PER CHARGE NURSE THEY WILL BE ACCEPTING PATIENT. Addendum: 04/21/20 at 1354 by Kate Khanna RN [facility]
--- NOTE | 2020-04-21 14:12 | NUR ---
Discharge Discharge instructions given as ordered. Encourage to follow up with facility MD. All questions and concerns addressed. Patient verbalized understanding. Discharge paper work given to halfway staff. IV removed with catheter intact, pressure dressing applied, haines catheter removed. Telemetry unit returned to ICU.
--- NOTE | 2020-04-21 14:30 | NUR ---
Patient taken to vehicle via wheelchair with all personal belongings, accompanied by staff and and senior living staff. No distress noted at time of departure.
== END 2020-04-21 14:30 | DRG 871 ==
LOC: EDBD 02:17 → ER 02:19 → EEVIPCON 02:19 → TELE 02:20 → TELE-EAST 09:50
PROVIDERS: ADMIT Nurse Practitioner; ATTEND Internal Medicine
PROC: XW033E5 Introduction of Remdesivir Anti-infective into Peripheral Vein, Percutaneous Approach, New Technology Group 5 (ICD-10-PCS; principal; 2020-04-13)
PROC: XW033E5 Introduction of Remdesivir Anti-infective into Peripheral Vein, Percutaneous Approach, New Technology Group 5 (ICD-10-PCS; 2020-04-14)
PROC: XW033E5 Introduction of Remdesivir Anti-infective into Peripheral Vein, Percutaneous Approach, New Technology Group 5 (ICD-10-PCS; 2020-04-15)
PROC: XW13325 Transfusion of Convalescent Plasma (Nonautologous) into Peripheral Vein, Percutaneous Approach, New Technology Group 5 (ICD-10-PCS; 2020-04-15)
PROC: XW033E5 Introduction of Remdesivir Anti-infective into Peripheral Vein, Percutaneous Approach, New Technology Group 5 (ICD-10-PCS; 2020-04-16)
PROC: XW033E5 Introduction of Remdesivir Anti-infective into Peripheral Vein, Percutaneous Approach, New Technology Group 5 (ICD-10-PCS; 2020-04-17)
DX: A41.89 Other specified sepsis (principal); U07.1 COVID-19; J12.89 Other viral pneumonia; J96.01 Acute respiratory failure with hypoxia; J15.6 Pneumonia due to other Gram-negative bacteria; E44.1 Mild protein-calorie malnutrition; E87.1 Hypo-osmolality and hyponatremia; J01.00 Acute maxillary sinusitis, unspecified; I10 Essential (primary) hypertension; K59.00 Constipation, unspecified; Z86.19 Personal history of other infectious and parasitic diseases; F41.9 Anxiety disorder, unspecified; Z68.27 Body mass index [BMI] 27.0-27.9, adult
CPT/HCPCS: 36415; 36600; 71045; 80053; 81001; 82728; 82805; 83605; 83615; 83735; 83880; 84443; 84484; 85007; 85025; 85027; 85379; 85610; 85730; 86141; 86850; 86900; 86901; 87040; 87070; 87081; 87804; 87880; 93005; 94640; G0378; J1100; J3490